=== PATIENT | male | born 1985 | race Caucasian/White ===

== ENCOUNTER 2017-06-23 01:45 | Observation (INO) | payer BC ==
[2017-06-23] MEDS ORDERED: Nitroglycerin 0.4 MG TAB (25 Tab Bottle) ONE (02:01)
[2017-06-23 02:08] LABS: #Basophils 0.1 thou/uL (0.0-0.2); #Eosinphils 0.2 thou/uL (0.0-0.7); #Lymphocytes 2.5 thou/uL (1.20-3.40); #Monocytes 0.8 thou/uL (0.11-0.59); #Neutrophils 5.7 thou/uL (1.40-6.50); %Eosinophils 1.7 % (0.0-10.0); %Lymphocytes 26.9 % (21.0-51.0); %Monocytes 8.4 % (0.0-10.0); Hematocrit 49.6 % (42.0-52.0); Mean Platelet Volume 7.7 fL (7.4-10.4); Red Blood Cell (RBC) Count 5.23 mill/uL (4.70-6.10); White Blood Cell (WBC) Count 9.1 thou/uL (4.8-10.8)
[2017-06-23 02:29] LABS: ALT (SGPT) 56 U/L (8-55); AST (SGOT) 32 U/L (5-34); Alkaline Phosphatase 79 U/L (40-150); Anion Gap 13 mmol/L (10-20); BUN (Urea Nitrogen) 8 mg/dL (8.9-20.6); Bilirubin, Total 0.8 mg/dL (0.2-1.2); CK (CPK) 271 U/L (30-200); Calc. Creatinine Clearance 0 mL/min (70-130); Calcium 9.6 mg/dL (7.8-10.44); Carbon Dioxide 25 mmol/L (22-29); Chloride 102 mmol/L (98-107); Estimated GFR-MDRD Greater than 90; Globulin 3.3 g/dL (2.4-3.5); Lipase 44 U/L (8-78); Magnesium 2.6 mg/dL (1.6-2.6); Protein, Total 7.6 g/dL (6.0-8.3)
[2017-06-23 02:33] LABS: Troponin I Less than 0.010 ng/mL (< 0.028)
[2017-06-23] MEDS ORDERED: Nitroglycerin 0.4 MG TAB (25 Tab Bottle) SL PRN (03:35)
[2017-06-23] MEDS ORDERED: cloNIDine 0.1 MG TAB PO PRN (03:36)
[2017-06-23] MEDS ORDERED: Ondansetron ODT 4 MG TAB SL PRN (03:37)
[2017-06-23] MEDS ORDERED: Acetaminophen 325 MG TAB PO PRN (03:37)
[2017-06-23] MEDS ORDERED: Ondansetron HCl/PF 4 MG/2 ML Vial IVP PRN (03:37)
[2017-06-23 04:04] VITALS: BMI 29.3
[2017-06-23 05:34] LABS: Troponin I Less than 0.010 ng/mL (< 0.028)
[2017-06-23] MEDS ORDERED: Sodium Chloride 0.9% 1,000 ML IV SCH ×2 (06:30→08:00)
[2017-06-23] MEDS ORDERED: Calcium Carbonate 500 MG ChewTAB PO PRN (07:51)
[2017-06-23 08:22] LABS: #Basophils 0.1 thou/uL (0.0-0.2); #Eosinphils 0.2 thou/uL (0.0-0.7); #Monocytes 0.9 thou/uL (0.11-0.59); #Neutrophils 4.8 thou/uL (1.40-6.50); %Basophils 0.8 % (0.0-1.0); %Eosinophils 2.5 % (0.0-10.0); %Lymphocytes 24.6 % (21.0-51.0); %Monocytes 11.8 % (0.0-10.0); Hematocrit 48.9 % (42.0-52.0); Mean Platelet Volume 8.5 fL (7.4-10.4); Red Blood Cell (RBC) Count 5.17 mill/uL (4.70-6.10); White Blood Cell (WBC) Count 7.9 thou/uL (4.8-10.8)
[2017-06-23 08:45] LABS: Anion Gap 12 mmol/L (10-20); BUN (Urea Nitrogen) 10 mg/dL (8.9-20.6); Calc. Creatinine Clearance 167 mL/min (70-130); Calcium 9.4 mg/dL (7.8-10.44); Carbon Dioxide 28 mmol/L (22-29); Chloride 104 mmol/L (98-107); Cholesterol 196 mg/dl (< 200 Desired); Estimated GFR-MDRD Greater than 90; LDL Cholesterol, Calculated 118 mg/dL
[2017-06-23 08:51] LABS: Troponin I Less than 0.010 ng/mL (< 0.028)
[2017-06-23] MEDS ORDERED: Aspirin 325 MG TAB PO SCH (09:00)
[2017-06-23] MEDS ORDERED: Metoprolol Tartrate 25 MG TAB PO SCH (09:00)
[2017-06-23] MEDS ORDERED: Docusate 100 MG CAP PO SCH (09:00)
[2017-06-23] MEDS ORDERED: Famotidine 20 MG TAB PO SCH (09:00)
--- NOTE | 2017-06-23 10:21 | HP ---
CHIEF COMPLAINT: Chest pain. HISTORY OF PRESENT ILLNESS: This is a 31-year-old pleasant gentleman who was apparently in his usual state of health, came into the hospital because of chest pain. He describes the chest pain to be pr essure-like on the left side of the chest area and not radiating to the neck, back, or arm. He says that it was relieved by the nitroglycerin given in the ER. The patient denies any shortness of breat h, nausea or vomiting associated with it, nothing exacerbated the pain. The patient denies any fever , chills, or any chest congestion, no diarrhea or dysuria. PAST MEDICAL HISTORY: Significant for none. PAST SURGICAL HISTORY: Significant for tonsillectomy. SOCIAL HISTORY: Marijuana use, tobacco use, occasional alcohol use. ALLERGIES: To PENICILLIN. He does not know the type of allergy. MEDICATIONS: None. FAMILY HISTORY: None. The patient has no diabetes, hypertension. REVIEW OF SYSTEMS: Significant for chest pain, otherwise no fever, no chills, no headache, no appeti te, no hearing loss, no latencies. No cough, no diarrhea, dysuria or polyuria. No memory or mood ch anges. No neck pain. PHYSICAL EXAMINATION: VITAL SIGNS: Blood pressure is 133/87, respirations 16, pulse is 82, afebrile. GENERAL: Patient is lying in bed, in no apparent distress. HEENT: Atraumatic and normocephalic. Pupils are equal, round, and react to light. Extraocular move ments intact. Mucous membranes moist. NECK: Supple. No JVD. CHEST: Breath sounds heard. No rales or rhonchi. HEART: S1, S2. No murmurs or gallops. ABDOMEN: Soft. EXTREMITIES: No cyanosis, clubbing, or edema. Distal pulses present. NEUROLOGIC: Alert, awake, oriented. No cranial deficits. No sensorimotor deficits. SKIN: Shows multiple tattoos. Warm and dry. LABORATORY DATA: WBC count is 9.1, hemoglobin 16, potassium is 3.5, creatinine is 0.8. Troponin neg ative x2. CK is 271. X-RAY FINDINGS: Chest x-ray show some coarse pulmonary markings, but no acute infiltrates noted. ASSESSMENT AND PLAN: 1. Chest pain, rule out acute coronary syndrome, most probably we will do echocardiogram, trend trop onins and do a stress test. We will also do UDS. Meanwhile, we will keep the patient comfortable on oxygen, nitroglycerin and p.r.n. pain medications. 2. Tobacco use. The patient has been counseled. 3. Marijuana use. The patient has been counseled. 4. Occasional alcohol use. The patient has been counseled. 5. Sequential compression devices for deep venous thrombosis prophylaxis. I will follow the labs an d do the need for.
--- NOTE | 2017-06-23 10:22 | RAD ---
PORTABLE UPRIGHT FRONTAL CHEST: Date: 06-23-17 Comparison: None. History: Chest pain. FINDINGS: Mild increased linear density is noted in the right lung base which could represent volume loss, scar , pulmonary vascular congestion or mild infiltrate. No pneumothorax, lobar consolidation or alveolar edema. IMPRESSION: Mild increased linear density noted in the left lung base as detailed above. POS: TL[facility]
[2017-06-23 13:09] VITALS: BP 164/99; TEMP 99.3
--- NOTE | 2017-06-23 13:26 | NM ---
CARDIAC SPECT: HISTORY: A 34-year-old male smoker with chest pain. TECHNIQUE: A myocardial perfusion scan was performed using the single-isotope 1-day protocol with Technetium 99m sestamibi. Nine mCi were injected intravenously for the rest exam followed by 30 mCi for the stress study. Exercise stress was monitored and interpreted by Seven Valdez, Nurse Practitioner. FINDINGS: Homogeneous tracer distribution is seen in the myocardial segments on stress and rest images without fixed or reversible defects. GATED SPECT LVEF: 61%. WALL MOTION EXAM: Normal. IMPRESSION: Normal myocardial perfusion scan. POS: PALLAVI
--- NOTE | 2017-06-23 20:48 | DIS ---
DATE OF ADMISSION: 06/23/2017 DATE OF DISCHARGE: 06/23/2017 DISCHARGE DIAGNOSES: Chest pain, noncardiac in origin; gastroesophageal reflux disease; tobacco use; marijuana use; alcohol use. DISCHARGE MEDICATIONS: Pepcid 20 mg p.o. b.i.d. BRIEF HOSPITAL COURSE: A 31-year-old pleasant gentleman came in with chest pain. Please refer to my H and P for further details. The patient was admitted. Serial troponins were done, which were nega tive. He also had a stress test that showed ejection fraction of 61% with no reversible defect, it w as negative. The patient right now is asymptomatic. He feels much better. He is medically stable t o be discharged. He is asked to come back to the emergency room in case symptoms recur. He is asked to avoid tobacco, marijuana, and alcohol. He understands all this. He is asked to take Pepcid 20 m g p.o. b.i.d. for the next 2 weeks and then p.r.n. He understands all this. He is asked to come salvatore k to the emergency room in case symptoms recur. Total time for this discharge took 35 minutes.
--- NOTE | 2017-08-07 10:40 | EKG ---
Test Reason : Blood Pressure : / mmHG Vent. Rate : 083 BPM Atrial Rate : 083 BPM P-R Int : 150 ms QRS Dur : 092 ms QT Int : 400 ms P-R-T Axes : 010 066 043 degrees QTc Int : 470 ms Normal sinus rhythm Normal ECG Confirmed by MAIDA BENSON M.D. ([id number]), city editor HEATHER RYAN ([id number] on 08/07/2017 10:40:30 AM Referred By: Confirmed By:MAIDA BENSON M.D.
--- NOTE | 2017-08-07 13:35 | STRESS ---
Acquisition Time: 2017-06-23 09:52:10 Total Exercise Time: 00:11:40 Test Indications: CHEST PAIN Medications: Protocol: ELIAZAR Max HR: 162 BPM 85% of Pred: 189 BPM Max BP: 160/084 mmHG Max Work Load: 13.7 METS RESTING ECG: NORMAL SINUS RHYTHM AT 85 BPM SYMPTOMS: DYSPNEA ON EXERTION NORMAL BP RESPONSE ECTOPY: NONE ECG STRESS: NO SIGNIFICANT CHANGES INTERPRETATION: NEGATIVE GXT/AWAIT NUCLEAR IMAGES FOR DEFINITIVE DIAGNOSIS Confirmed by CARMELLA HARRIS MD ([id number]) on 08/07/2017 1:35:19 PM Referred By: MD Felicita RADFORD Confirmed By:CARMELLA HARRIS MD
== END 2017-06-23 13:04 | disposition home or self-care (01) ==
LOC: ERS 01:45 → 2SW 02:46
PROVIDERS: ADMIT Internal Medicine; ATTEND Internal Medicine
DX: R07.89 Other chest pain (principal); K21.9 Gastro-esophageal reflux disease without esophagitis; F17.200 Nicotine dependence, unspecified, uncomplicated; F12.10 Cannabis abuse, uncomplicated; Z88.0 Allergy status to penicillin; Z72.89 Other problems related to lifestyle
CPT/HCPCS: 36415; 71010; 78452; 80053; 80061; 82553; 83690; 83735; 83880; 84484; 85025; 93005; 93017; 94760; A9500; G0378